=== PATIENT | female | born 1980 | race African-American/Black ===

== ENCOUNTER 2018-02-03 07:29 | Day surgery (SDC) | payer BC ==
[2018-02-02 09:29] VITALS: BMI 27.4
[2018-02-03] MEDS ORDERED: oxyCODONE HCL 5 MG TABLET PO PRN ×3 (08:44→10:27)
[2018-02-03] MEDS ORDERED: ONDANSETRON 4 MG/2 ML VIAL IVPUSH PRN ×2 (08:44→10:27)
[2018-02-03] MEDS ORDERED: LACTATED RINGERS SOLUTION 1,000 ML IV SCH (08:45)
--- NOTE | 2018-02-03 09:21 | HP ---
History & Physical Update - History History: No Change - Physical Physical: No Change - Assessment Assessment: No Change - Plan Plan: No Change (Updated from 01/10/18 Consent signed and witnessed)
[2018-02-03] MEDS ORDERED: MIDAZOLAM HCL 2 MG/2 ML SINGLE DOSE VIAL ONE (09:22)
[2018-02-03] MEDS ORDERED: PROPOFOL 20 ML ONE (09:22)
[2018-02-03] MEDS ORDERED: LIDOCAINE HCL/PF 2% SDV 5ML VIAL ONE (09:25)
[2018-02-03] MEDS ORDERED: IBUPROFEN 800 MG/8 ML IJ IVPB PRN (10:27)
[2018-02-03] MEDS ORDERED: IBUPROFEN 600 MG TABLET (FP) PO PRN (10:27)
--- NOTE | 2018-02-03 10:27 | OP ---
Operative Note - Note: Operative Date: 02/03/18 Pre-Operative Diagnosis: 37yo P0 attempting fertility with submucosal polyp/ fibroid Operation: Hysteroscopy, Myomectomy, D&C Findings: R lateral wall fibroid - 1cm Post-Operative Diagnosis: Same as Pre-op Surgeon: Vicki Hartman Anesthesiologist/GENERAL OFFICE CLERK: Kemi Burks Anesthesia: MAC Specimens Removed: 1. Fibrous polyp Estimated Blood Loss (mls): 0 Instrument used (Debridements only): Symphion Drains & Tubes with Location: Fluid defficit - 100cc Drains, Volume Out (mls): 50 Fluid Volume Replaced (mls): 700 Operative Report Dictated: Yes
[2018-02-03] MEDS ORDERED: ELECTROLYTE-148 SOLN 1,000 ML IV SCH (10:30)
[2018-02-03] MEDS ORDERED: IBUPROFEN 800 MG/8 ML IJ IVPB ONE (10:44)
[2018-02-03 11:12] VITALS: TEMP 97.6
[2018-02-03 11:54] VITALS: BP 121/76; PULSE 74
--- NOTE | 2018-02-03 22:51 | OP ---
DATE OF OPERATION: 02/03/2018 PREOPERATIVE DIAGNOSIS: 37-year-old para 0 attempting fertility with submucosal polyps/fibroids. OPERATION: Hysteroscopy, myomectomy, dilation and curettage. FINDINGS: Right lateral wall fibroid 1 cm polypoid in nature. POSTOPERATIVE DIAGNOSIS: 37-year-old para 0 attempting fertility with submucosal polyps/fibroids. SURGEON: Vicki Hartman M.D. ANESTHESIOLOGIST: Kemi Burks M.D. ANESTHESIA: MAC SPECIMENS: Removed: Fibrous polyp. ESTIMATED BLOOD LOSS: Zero. INSTRUMENT USED: Symphion. DESCRIPTION OF OPERATIVE PROCEDURE: After assuring informed consent, patient was brought to the operating room where she was placed in dorsal lithotomy position. Perineum and vagina were prepped and draped in sterile fashion. Hysteroscopic resectoscope was assembled, white balanced, and primed. The Jane retractors were placed into the patient's vagina and cervical anterior lip was articulated with single-toothed tenaculum. Cervix was dilated with gradually increasing dilators up to the 19 gauge. The hysteroscope was introduced into the cervix under direct visualization atraumatically. The uterine cavity was inspected, bilateral ostia were visualized. The cavity was found to be intact. The fundal bubble was visualized. The right lateral fibrous polyp was noted on the right side and was resected with Symphion resectoscope, and the rest of the cavity was found to be free of pathology. Hysteroscopic instrument was removed from the uterine cavity. All instruments were removed from cervix and the vagina. Fluid deficit was found to be 100 mL. Patient put out 50 mL of urine, drained at the beginning of the procedure, and received 700 mL of IV fluids. Instrument and sponge count was correct x 2. Patient was subsequently extubated and brought to the recovery room in stable condition. Dinorah [id number] MTDD
--- NOTE | 2018-02-05 17:35 | PATH ---
Surgical Pathology Report Patient Name: KATIE ROSS [facility]. Rec. #: [id number] /Age/Gender: 1980 (Age: 37) / F Account: [id number] Location: [facility] SURGICAL Taken: 02/03/2018 Received: 02/03/2018 Reported: 02/05/2018 Physicians: Vicki Hartman M.D. Specimen(s) Received FIBROID Clinical History Fibroid uterus Final Diagnosis FIBROID, EXCISION: FRAGMENTS OF SMOOTH MUSCLE BUNDLES CONSISTENT WITH LEIOMYOMA. ENDOMETRIAL POLYP. SEPARATE PROLIFERATIVE ENDOMETRIUM. POLYPOID ENDOCERVICAL TISSUE WITH NO DIAGNOSTIC ABNORMALITIES. Electronically Signed Balaji Gómez M.D. Gross Description Received in formalin labeled "fibroid," is a 1 g, 2.3 x 2.0 x 0.3 cm aggregate of natarajan fragments of firm tissue, consistent with morcellated fibroids. The specimen is entirely submitted in one cassette. /02/03/201802/03/2018
== END 2018-02-03 12:10 | disposition home or self-care (01) ==
LOC: JASU-SURG 07:29
PROVIDERS: ATTEND Obstetrics & Gynecology
PROC: 0UB98ZX Excision of Uterus, Via Natural or Artificial Opening Endoscopic, Diagnostic (ICD-10-PCS; 2018-02-03)
PROC: 0UDB8ZX Extraction of Endometrium, Via Natural or Artificial Opening Endoscopic, Diagnostic (ICD-10-PCS; 2018-02-03)
PROC: 0UB98ZZ Excision of Uterus, Via Natural or Artificial Opening Endoscopic (ICD-10-PCS; principal; 2018-02-03 08:30)
DX: D25.0 Submucous leiomyoma of uterus (principal); N84.0 Polyp of corpus uteri
CPT/HCPCS: 84703; 88305-TC; 94760